=== PATIENT | male | born 1980 | race Two or more races ===

== ENCOUNTER 2019-02-21 03:29 | Emergency (ER) | payer SELFPAY ==
[~2019-02-21] VITALS: Ht 175.3 cm; Wt 81.6 kg
[2019-02-21] MEDS ORDERED: TDAP [DIPH/PERTUSSIS/TET] 0.5 ML VIAL IM ONE ×2 (03:48→04:00)
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
--- NOTE | 2019-02-21 04:00 | NUR ---
PT FACE CLEANED.
[2019-02-21] MEDS ORDERED: LIDOCAINE 1%-EPI 1:100,000 20 ML VIAL ONE (04:43)
--- NOTE | 2019-02-21 06:33 | NUR ---
Patient is resting comfortably in bed with eyes closed. Easily aroused. VSS
[2019-02-21 07:05] VITALS: BP 138/71
== END 2019-02-21 07:06 | disposition home or self-care (01) ==
LOC: ER 03:30
DX: S01.81XA Laceration without foreign body of other part of head, initial encounter (principal); S20.211A Contusion of right front wall of thorax, initial encounter; F10.129 Alcohol abuse with intoxication, unspecified; Y04.0XXA Assault by unarmed brawl or fight, initial encounter; Y93.89 Activity, other specified; Y92.89 Other specified places as the place of occurrence of the external cause; Y99.8 Other external cause status
CPT/HCPCS: 12011; 70450; 70486; 71100; 72125; 90471; 90715; 99284; A6402 ×2; A6403 ×2; J3490